=== PATIENT | male | born 1980 | race Caucasian/White ===

== ENCOUNTER 2022-08-22 09:50 | Emergency (ER) | payer BC ==
[~2022-08-22] VITALS: Ht 185.4 cm; Wt 206.4 kg
[2022-08-22 09:59] VITALS: BP_SYST 135
--- NOTE | 2022-08-22 10:00 | NUR ---
Patient triaged and placed in waiting room. VSS and patient appears in no acute distress at this time. Accompanied by , awaiting available bed, and MD notified of need for MSE.
--- NOTE | 2022-08-22 10:15 | NUR ---
ER DR. KELLY EXAMINING PT IN TRIAGE
[2022-08-22] MEDS ORDERED: DOXY100C PO ×3 (11:32→12:00)
[2022-08-22] MEDS ORDERED: AMOX-520 PO ×3 (11:32→12:00)
[2022-08-22] MEDS ORDERED: D-ME118S48 PO ×3 (11:32→12:00)
[2022-08-22 12:45] VITALS: BP_SYST 135
--- NOTE | 2022-08-22 12:45 | NUR ---
Patient given written and verbal discharge instructions and verbalizes understanding. ER MD discussed with patient the results and treatment provided. Patient in stable condition. ID arm band removed. Rx of AMOXICILLIN, BROMFED DM COUGH SYRUP AND VIBRAMYCIN given. Patient educated on pain management and to follow up with PMD. Pain Scale 0/10. Opportunity for questions provided and answered. Medication side effect fact sheet provided.
== END 2022-08-22 12:45 | disposition home or self-care (01) ==
LOC: SED 09:50
DX: J18.9 Pneumonia, unspecified organism (principal); R05.9 Cough, unspecified; R50.9 Fever, unspecified; R06.02 Shortness of breath; I10 Essential (primary) hypertension; Z79.899 Other long term (current) drug therapy; Z20.822 Contact with and (suspected) exposure to COVID-19
CPT/HCPCS: 36415; 71045; 93005; 99285